=== PATIENT | male | born 1940 | race Caucasian/White ===

== ENCOUNTER → 2019-12-03 | Outpatient (CLI) | payer MEDICARE | LOC: LABNPT 05:22 | PROVIDERS: ATTEND Orthopaedic Surgery Orthopaedic Surgery of the Spine | DX: Z01.812 Encounter for preprocedural laboratory examination (principal); Z20.828 Contact with and (suspected) exposure to other viral communicable diseases | CPT/HCPCS: 87635 ==

== ENCOUNTER → 2020-11-03 | Outpatient (CLI) | payer MEDICARE | LOC: LABNPT 06:20 | PROVIDERS: ATTEND Orthopaedic Surgery Orthopaedic Surgery of the Spine | DX: Z20.822 Contact with and (suspected) exposure to COVID-19 (principal) | CPT/HCPCS: 87635 ==

== ENCOUNTER 2022-06-06 09:05 | Outpatient (RCR) | payer MEDICARE | END 2022-06-09 | disposition home or self-care (01) | PROVIDERS: ATTEND Registered Nurse | DX: M54.16 Radiculopathy, lumbar region (principal); R26.9 Unspecified abnormalities of gait and mobility; I10 Essential (primary) hypertension ==

== ENCOUNTER 2022-07-04 08:06 | Outpatient (RCR) | payer MEDICARE | END 2022-07-04 09:00 | disposition home or self-care (01) | PROVIDERS: ATTEND Registered Nurse | DX: M54.16 Radiculopathy, lumbar region (principal); R26.9 Unspecified abnormalities of gait and mobility; I10 Essential (primary) hypertension ==